=== PATIENT | female | born 1960 | race Caucasian/White ===

== ENCOUNTER → 2016-11-19 | Outpatient (CLI) | payer OTHER ==
--- NOTE | 2016-11-20 08:04 | PN ---
A 56-year-old female patient coming in for a compliancy check. The patient has a moderate to severe NIC with an AHI of 18.3 and the patient is currently receiving CPAP therapy at a pressure of 9 cm of water. She is doing very well and she is benefiting from the treatment. Her AHI while on treatment is down to 0.8. She has used her CPAP for more than 4 hours more than 70% of the time and her average CPAP use is around 5.7 hours per night. Leak factor is only at 14 L. Mutual score is down to 6. Her sleep quality has improved and she is waking up much more alert and refreshed during the day and she has no other specific complaints. BP is 155/98, pulse 70, respirations 16, temperature is 98.1. Weight is 153. GENERAL APPEARANCE: Calm, comfortable. HEENT: Negative for JVD. There is no goiter or neck mass. LUNGS: Clear to auscultation. HEART: Sounds are regular rate and rhythm. Normal S1, S2. ABDOMEN: Soft, nontender. No organomegaly. EXTREMITIES: No edema, no cyanosis or clubbing. IMPRESSION: 1. Successful obstructive sleep apnea treatment. The patient has moderate to severe disease with an apnea-hypopnea index of 18.3 and currently she is on CPAP pressure of 9 cm of water. 2. Hypersomnia, improved. PLAN: 1. Patient demonstrated adequate clinical response and compliance. 2. Continue the same pressure settings. 3. Encouraged to lose weight. 4. Implement good sleep hygiene measures. 5. See me back in a year's time in followup, earlier if needed.
== END | disposition home or self-care (01) ==
LOC: SLEEP 16:37
PROVIDERS: ATTEND Internal Medicine Critical Care Medicine
DX: G47.33 Obstructive sleep apnea (adult) (pediatric) (principal); G47.10 Hypersomnia, unspecified

== ENCOUNTER → 2017-12-23 | Outpatient (CLI) | payer OTHER ==
--- NOTE | 2017-12-23 20:31 | PN ---
PROGRESS NOTE This is a 57-year-old female patient coming in for an annual check regarding NIC treatment. She has moderate to severe disease with an AHI of 18.3, and currently she is on CPAP at a pressure of 9 cm of water. Treatment remains successful. The patient using the Kennedy FX nose pillows and she is looking for alternative mask. I suggested AirFit P10 nose mask and she is willing to make this change for the time being. The patient is very much happier with her CPAP treatment. She is wearing it at night. She wakes up much more refreshed and alert during the day. She continues to benefit from the treatment. She is trying to lose weight. She used to weigh 153 pounds during her last visit and currently she is at 151. She had no complaints otherwise for now, I checked the compliance data and her CPAP use for more than 4 hours is around 70% and her average CPAP use around 4.5 hours per night and her leak factor 22 L/minute. Her AHI is down to 0.3 while on treatment. She has no other complaints otherwise for now. REVIEW OF SYSTEMS: 12-point review of system was done and she had no grinding of the teeth. No insomnia. No sleepwalking. No dry mouth. No anxiety or panic attacks. No palpitation. No heartburn. No restlessness in the lower extremities. No sleepwalking. No sweating. No anxiety. No depression. PHYSICAL EXAMINATION: Her current vitals BP is 140/88, pulse 74, respiration rate is 16, BMI 24. Weight is 151, height is 5 feet 6 inches. Temperature 98.0. Saturation 97% on room air. GENERAL APPEARANCE: Calm, comfortable in no acute distress. Head is atraumatic, normocephalic. NECK: Supple. There is no JVD. No goiter or neck mass. LUNGS: Diminished breath sounds bilaterally. Otherwise clear. HEART: Sounds are regular rate and rhythm. Normal S1, S2. No S3. No murmurs. ABDOMEN: Soft, nontender. No organomegaly. EXTREMITIES: No edema. No cyanosis or clubbing. NEUROLOGIC: The patient is alert and oriented x3. No focal neurological deficits. PSYCHIATRIC: Negative for anxiety or depression. IMPRESSION: 1. There is obstructive sleep apnea, moderate in severity. AHI of 18.3, the patient continues to be under successful CPAP therapy pressure of 9 cm of water. 2. Hypersomnia, improved and the patient's current Matthews score is down to 8. 3. Obesity with interval weight loss. Current BMI is 24. PLAN: 1. Continue same pressure setting of 9 cm of water. 2. Switch this patient to an AirFit P10 small size nose pillows. 3. Treatment continues to be successful, see me back in a year's time or earlier if needed. MMODL / IJN: [id number] /
== END | disposition home or self-care (01) ==
LOC: SLEEP 14:43
PROVIDERS: ATTEND Internal Medicine Critical Care Medicine
DX: G47.33 Obstructive sleep apnea (adult) (pediatric) (principal); E66.9 Obesity, unspecified; Z99.89 Dependence on other enabling machines and devices; Z68.24 Body mass index [BMI] 24.0-24.9, adult

== ENCOUNTER → 2018-09-10 | Outpatient (CLI) | payer OTHER | LOC: LABWHC1 10:51 | PROVIDERS: ATTEND Family Medicine | DX: E78.00 Pure hypercholesterolemia, unspecified (principal); R79.9 Abnormal finding of blood chemistry, unspecified | CPT/HCPCS: 36415; 83090 ==

== ENCOUNTER → 2019-05-18 | Outpatient (CLI) | payer OTHER ==
--- NOTE | 2019-05-18 18:15 | PN ---
PROGRESS NOTE This is a 59-year-old female patient coming in for an annual check regarding obstructive sleep apnea. The patient's mother has severe disease with an AHI of 18. The patient is currently on CPAP therapy, and the patient is coming to see me in followup regarding her obstructive sleep apnea. The patient has been averaging around 6.2 hours of CPAP use per night based on the compliance data that was collected on her machine. Her CPAP use for more than 4 hours is above 90%. Her AHI is down to 0.6. She is refreshed and alert during the day. She has maintained her body weight and there have been no other new-onset of medical problems or comorbidities since she was last here. She is exploring other options in terms of the nose mask. Currently she is using an AirFit P10 and she is asking if there is any other alternative that she could use while on CPAP therapy. Her current [place] score is 8. No headaches. No altered mentation. No drowsiness or sleepiness during the day. No other complaints otherwise for now. REVIEW OF SYSTEMS: Fourteen-point review of systems was done. Positive findings are all mentioned above in the history of present illness. PHYSICAL EXAMINATION: VITAL SIGNS: BP is 151/99, pulse 74, respirations 16, temperature 98.7, saturation 98% on room air. [place] score is 8. Height is 5 feet 7 inches, weight 152 and BMI 23.8. GENERAL APPEARANCE: Calm, comfortable. HEAD: Atraumatic, normocephalic. NECK: Supple. No JVD. No goiter or neck masses. LUNGS: Diminished; otherwise clear. HEART: Heart sounds are regular rate and rhythm. Normal S1, S2. No S3, S4. No murmurs. ABDOMEN: Soft, nontender. No organomegaly. EXTREMITIES: No edema. No cyanosis or clubbing. NEUROLOGIC: Alert and oriented. There is no focal neurological deficit. PSYCHIATRIC: Negative for anxiety or depression. IMPRESSION: Symptomatic obstructive sleep apnea with an apnea/hypopnea index of 18.3, consistent with moderate to severe disease, currently on CPAP therapy at a pressure of 9 cm. PLAN: Treatment continues to be successful. Continue the same CPAP pressure. I gave the patient 2 options: The first option was a DreamWear small-sized, small frame under -the- nose mask, and the second option is an AirFit P30I small-sized nose pillow. Samples of both were given, and the patient will decide if these are going to be adequate masks for her and if this is something that she would like to use in the future. Otherwise, implement good sleep hygiene measures. Continue the treatment. The patient will see me back in a year's time in followup, earlier if needed. STELLA / CHIQUIN: [id number] /
== END | disposition home or self-care (01) ==
LOC: SLEEP 15:46
PROVIDERS: ATTEND Internal Medicine Critical Care Medicine
DX: G47.33 Obstructive sleep apnea (adult) (pediatric) (principal); Z99.89 Dependence on other enabling machines and devices

== ENCOUNTER → 2024-02-24 | Outpatient (CLI) | payer OTHER ==
--- NOTE | 2024-02-24 14:00 | BD ---
EXAMINATION TYPE: Axial Bone Density DATE OF EXAM: 02/24/2024 CLINICAL HISTORY: 63 years old Female. ICD-10 CODE: M85.9 DISORDER OF BONE Height: 5 ft 6 1/2 in Weight: 140 FRAX RISK QUESTIONS: Alcohol (3 or more units per day): no Family History (Parent hip fracture): no Glucocorticoids (More than 3mos): no (Ex: prednisone, prednisolone, methylprednisolone, dexamethasone, and hydrocortisone). History of Fracture in Adulthood: no Secondary Osteoporosis: 1. Type 1 Diabetes: no 2. Hyperthyroidism: no 3. Menopause before 45: no 4. Malnutrition: no 5. Chronic liver disease: no Rheumatoid Arthritis: no Current Tobacco Use: no RISK FACTORS HISTORY OF: Surgery to Spine/Hip(right/left)/Wrist (right/left): no MEDICATIONS: Thyroid Medications: none Osteoporosis Medications: none EXAM MEASUREMENTS: Bone mineral densitometry was performed using the Epoxy System. Bone mineral density as measured about the Lumbar spine is: ----- L1-L4(G/cm2): 1.056 T Score Values are as follows: ----- L1: -1.5 ----- L2: -1.3 ----- L3: -0.8 ----- L4: -0.8 ----- L1-L4: -1.0 Z Score Values are as follows: ----- L1: -0.1 ----- L2: 0.0 ----- L3: 0.5 ----- L4: 0.6 ----- L1-L4: 0.3 prev done [facility] Bone mineral density about the R hip (g/cm2): 0.860 Bone mineral density about the L hip (g/cm2): 0.855 T Score values are as follows: -----R Neck: -1.3 -----L Neck: -1.3 -----R Total: -1.0 -----L Total: -0.9 Z Score values are as follows: -----R Neck: 0.1 -----L Neck: 0.0 -----R Total: 0.0 -----L Total: 0.1 prev done [facility] FRAX%s: The graph provided illustrates a 7.4 % chance for a major osteoporotic fx and a 0.6% chance f or the hips probability for fx in 10 years time. IMPRESSION: Normal (Values between +1 and -1 indicate normal bone mass). Consider repeating this study in 5 year s or sooner if there is some new clinical indication. NOTE: T-SCORE=SD OF THE YOUNG ADULT MEAN.
--- NOTE | 2024-02-25 13:43 | MM ---
Reason for Exam: Screening (asymptomatic). Last screening mammogram was performed 12 month(s) ago. Patient History: Menarche at age 14. First Full-Term at age 22. Hysterectomy at age 50. Patient has history of breast feeding. Patient used Hormonal Contraceptives for 5 years. Mother had breast cancer at or over age 50. Risk Values: Rochelle 5 year model risk: 2.8%. NCI Lifetime model risk: 13.2%. Prior Study Comparison: 11/28/2000 Bilateral Screening Mammogram, [facility]. 08/17/2021 Bilateral Screening Mammogram, Unknown. 09/03/2021 Right Diagnostic Mammogram, Unknown. 11/08/2022 Bilateral MG 3D screening mammo w/cad, Unknown. 01/30/2023 Right MG 3D diag mammo w/cad RT - 2, Unknown. Tissue Density: The breasts are heterogeneously dense, which may obscure small masses. Findings: Analyzed By CAD. There is no suspicious group of microcalcifications or new suspicious mass in either breast. Overall Assessment: Negative, BI-RAD 1 Management: Screening Mammogram of both breasts in 1 year. . Patient should continue monthly self-breast exams. A clinical breast exam by your physician is recommended on an annual basis. This exam should not preclude additional follow-up of suspicious palpable abnormalities. Note on Rochelle scores and lifetime risk: 1. A Rochelle score greater than 3% is considered moderate risk. If this is the case, consider specialist referral to assess eligibility for a risk reducing agent. 2. If overall lifetime risk for the development of breast cancer is 20% or higher, the patient may qualify for future screening with alternating mammogram and breast MRI. Electronically signed and approved by: Fito Menchaca M.D. Radiologis
== END | disposition home or self-care (01) ==
LOC: RADMAMWWP 12:03
PROVIDERS: ATTEND Family Medicine
DX: Z12.31 Encounter for screening mammogram for malignant neoplasm of breast (principal); R92.333 Mammographic heterogeneous density, bilateral breasts; Z80.3 Family history of malignant neoplasm of breast; M85.88 Other specified disorders of bone density and structure, other site
CPT/HCPCS: 77063; 77067; 77080

== ENCOUNTER → 2024-11-26 | Outpatient (CLI) | payer OTHER ==
--- NOTE | 2024-11-26 17:11 | CT ---
EXAMINATION TYPE: CT heart w calcium score DATE OF EXAM: 11/26/2024 COMPARISON: None CLINICAL INDICATION: Female, 64 years old with history of E78.00 PURE HYPERCHOLESTEROLEMIA, UNSPECIFI ED; PHH, high cholesterol levels, family history of cardiac disease TECHNIQUE: Prospective Gating was used. Slice thickness: 3mm. Density threshold (HU): 130, Pixel threshold: 3, Algorithm: discrete. CT DLP: 67.[address] CTDI: 3.43 mGy Automated exposure control for dose reduction was used. FINDINGS: CT CALCIUM SCORING Coronary calcium is a marker for plaque (fatty deposits) in a blood vessel or atherosclerosis (harden ing of the arteries). The presence and amount of calcium detected in a coronary artery by the CT sca n, indicates the presence and amount of atherosclerotic plaque. These calcium deposits appear years before the development of heart disease symptoms such as chest pain and shortness of breath. A calcium score is computed for each of the coronary arteries based upon the volume and density of th e calcium deposits. This can be referred to as your calcified plaque burden. It does not correspond directly to the percentage of narrowing in the artery but does correlate with the severity of the un derlying coronary atherosclerosis. RESULTS Region: LM Calcium Score ([place]): 0 Volume (mm3): 0 Mass (g): 0 Region: RCA Calcium Score ([place]): 4 Volume (mm3): 6.6 Region: LAD Calcium Score ([place]): 0 Volume (mm3): 0 Mass (g): 0 Region: CX Calcium Score ([place]): 0 Volume (mm3): 0 Mass (g): 0 Region: PDA Calcium Score ([place]): 0 Volume (mm3): 0 Mass (g): 0 Total: Calcium Score ([place]): 4 Volume (mm3): 6.6 INCIDENTAL: Ectatic ascending aorta 3.6 cm. Visualized lungs are clear. IMPRESSION: Calcium Score: 4 Implication: Very low, generally less than 5%. Risk of Coronary Artery Disease: Minimal identifiable plaque. [facility], Workstation: [email or web address], 11/26/2024 5:09 PM
== END | disposition home or self-care (01) ==
LOC: RADCTMAIN 12:27
PROVIDERS: ATTEND Family Medicine
DX: E78.00 Pure hypercholesterolemia, unspecified (principal); R03.0 Elevated blood-pressure reading, without diagnosis of hypertension
CPT/HCPCS: 75571